=== PATIENT | male | born 1955 | race African-American/Black ===

== ENCOUNTER 2022-03-04 12:07 | Inpatient (IN) | payer OTHER ==
[2022-03-04 14:11] VITALS: BMI 20.9
[2022-03-04] MEDS ORDERED: NALOXONE HCL (KLOXXADO) 8 MG SPRAY NS PRN (14:53)
[2022-03-04] MEDS ORDERED: DICYCLOMINE HCL 10 MG CAPSULE PO PRN (14:53)
[2022-03-04] MEDS ORDERED: NICOTINE 10 MG CARTRIDGE (INHALER) IH PRN (14:53)
[2022-03-04] MEDS ORDERED: ACETAMINOPHEN 325 MG TABLET (FP) PO PRN ×2 (14:53)
[2022-03-04] MEDS ORDERED: BISMUTH SUBSALICYLATE 524 MG/30 ML PO PRN (14:53)
[2022-03-04] MEDS ORDERED: MAGNESIUM CITRATE 300 ML BOTTLE PO PRN (14:53)
[2022-03-04] MEDS ORDERED: IBUPROFEN 400 MG TABLET (FP) PO PRN (14:53)
[2022-03-04] MEDS ORDERED: ONDANSETRON *ODT* 4 MG TABLET SL PRN (14:53)
[2022-03-04] MEDS ORDERED: MAG HYDROX/AL HYDROX/SIMETH 30 ML UNIT-DOSE CUP PO PRN (14:53)
[2022-03-04] MEDS ORDERED: METHOCARBAMOL 500 MG TABLET PO PRN (14:53)
[2022-03-04] MEDS ORDERED: MAGNESIUM HYDROX 2400MG/30ML ORAL SUSPENSION 30 ML CUP PO PRN (14:53)
[2022-03-04] MEDS ORDERED: LOPERAMIDE HCL 2 MG CAPSULE PO PRN (14:53)
[2022-03-04] MEDS ORDERED: IBUPROFEN 600 MG TABLET (FP) PO PRN (14:53)
[2022-03-04] MEDS ORDERED: LORATADINE 10 MG TABLET PO SCH (16:00)
[2022-03-04] MEDS: hydrOXYzine PAMOATE 25 MG CAPSULE (FP) PO SCH ×2 (18:01→22:26)
[2022-03-04] MEDS: PRENATAL VITAMINS W/ FOLIC ACID TABLET (FP) PO SCH (18:12)
[2022-03-04] MEDS: MELATONIN 5 MG TABLETS PO SCH (22:26)
[2022-03-04] MEDS: THIAMINE HCL 100 MG TABLET (FP) PO SCH (22:27)
[2022-03-05] MEDS: hydrOXYzine PAMOATE 25 MG CAPSULE (FP) PO SCH ×5 (07:04→22:28)
[2022-03-05] MEDS ORDERED: chlordiazePOXIDE HCL 25 MG CAPSULE PO PRN (10:40)
[2022-03-05] MEDS: APIXABAN 5 MG TABLET PO SCH (10:46)
[2022-03-05] MEDS: amLODIPine BESYLATE 5 MG TABLET (FP) PO SCH (10:47)
[2022-03-05] MEDS: PRENATAL VITAMINS W/ FOLIC ACID TABLET (FP) PO SCH (10:47)
[2022-03-05 12:12] LABS: HEMATOCRIT 35.5 % (35.4-49); HEMOGLOBIN 12.1 GM/dL (11.7-16.9); MCH 27.8 pg (25.7-33.7); MCHC 33.9 g/dl (32.0-35.9); MEAN PLT VOLUME 7.8 fl (7.5-11.1); PLATELET COUNT 193 10^3/uL (134-434); RBC 4.33 M/mm3 (4.00-5.60); RDW 17.4 % (11.9-15.9)
[2022-03-05 12:27] LABS: CALCIUM 8.9 mg/dL (8.5-10.1)
[2022-03-05 12:28] LABS: ALBUMIN 2.8 g/dl (3.4-5.0); BLOOD UREA NITROGEN 17.8 mg/dL (7-18)
[2022-03-05 12:31] LABS: CREATININE 0.9 mg/dL (0.55-1.3)
[2022-03-05 12:32] LABS: BILIRUBIN,TOTAL 0.3 mg/dL (0.2-1); TOT PROT 6.7 g/dl (6.4-8.2)
[2022-03-05] MEDS: EMTRICITAB/RILPIVIRINE/TENOFOV 1 EACH TABLET PO SCH (13:03)
[2022-03-05] MEDS: chlordiazePOXIDE HCL 25 MG CAPSULE PO SCH ×3 (13:03→22:29)
[2022-03-05] MEDS: BENZOCAINE/MENTHOL (CHLORASEPTIC ) LOZENGE MM PRN (18:22)
[2022-03-05] MEDS: THIAMINE HCL 100 MG TABLET (FP) PO SCH (22:28)
[2022-03-05] MEDS: QUEtiapine FUMARATE 200 MG TABLET PO SCH (22:28)
[2022-03-05] MEDS: MELATONIN 5 MG TABLETS PO SCH (22:28)
[2022-03-06] MEDS: chlordiazePOXIDE HCL 25 MG CAPSULE PO SCH ×4 (06:02→22:12)
[2022-03-06] MEDS: hydrOXYzine PAMOATE 25 MG CAPSULE (FP) PO SCH ×5 (06:03→22:10)
[2022-03-06] MEDS: EMTRICITAB/RILPIVIRINE/TENOFOV 1 EACH TABLET PO SCH (07:16)
[2022-03-06] MEDS: APIXABAN 5 MG TABLET PO SCH (10:19)
[2022-03-06] MEDS: PRENATAL VITAMINS W/ FOLIC ACID TABLET (FP) PO SCH (10:19)
[2022-03-06] MEDS: amLODIPine BESYLATE 5 MG TABLET (FP) PO SCH (10:19)
[2022-03-06] MEDS: BENZOCAINE/MENTHOL (CHLORASEPTIC ) LOZENGE MM PRN (10:52)
[2022-03-06] MEDS: QUEtiapine FUMARATE 200 MG TABLET PO SCH (22:10)
[2022-03-06] MEDS: MELATONIN 5 MG TABLETS PO SCH (22:10)
[2022-03-06] MEDS: THIAMINE HCL 100 MG TABLET (FP) PO SCH (22:10)
[2022-03-07] MEDS: chlordiazePOXIDE HCL 25 MG CAPSULE PO SCH ×4 (05:18→22:21)
[2022-03-07] MEDS: hydrOXYzine PAMOATE 25 MG CAPSULE (FP) PO SCH ×5 (05:18→22:21)
[2022-03-07] MEDS: APIXABAN 5 MG TABLET PO SCH (10:46)
[2022-03-07] MEDS: PRENATAL VITAMINS W/ FOLIC ACID TABLET (FP) PO SCH (10:46)
[2022-03-07] MEDS: EMTRICITAB/RILPIVIRINE/TENOFOV 1 EACH TABLET PO SCH (10:46)
[2022-03-07] MEDS: amLODIPine BESYLATE 5 MG TABLET (FP) PO SCH (10:48)
[2022-03-07] MEDS: guaiFENesin 200 MG/10 ML 10 ML UNIT-DOSE CUPS PO PRN ×2 (13:03→22:23)
[2022-03-07] MEDS: QUEtiapine FUMARATE 200 MG TABLET PO SCH (22:21)
[2022-03-07] MEDS: THIAMINE HCL 100 MG TABLET (FP) PO SCH (22:21)
[2022-03-07] MEDS: MELATONIN 5 MG TABLETS PO SCH (22:21)
[2022-03-07] MEDS: BENZOCAINE/MENTHOL (CHLORASEPTIC ) LOZENGE MM PRN (22:24)
[2022-03-08] MEDS ORDERED: chlordiazePOXIDE HCL 10 MG CAPSULE PO PRN
[2022-03-08] MEDS: chlordiazePOXIDE HCL 10 MG CAPSULE PO SCH ×4 (05:17→22:10)
[2022-03-08] MEDS: hydrOXYzine PAMOATE 25 MG CAPSULE (FP) PO SCH ×5 (05:17→22:10)
[2022-03-08] MEDS: guaiFENesin 200 MG/10 ML 10 ML UNIT-DOSE CUPS PO PRN ×2 (05:18→22:13)
[2022-03-08] MEDS: EMTRICITAB/RILPIVIRINE/TENOFOV 1 EACH TABLET PO SCH (07:26)
[2022-03-08] MEDS: PRENATAL VITAMINS W/ FOLIC ACID TABLET (FP) PO SCH (10:23)
[2022-03-08] MEDS: amLODIPine BESYLATE 5 MG TABLET (FP) PO SCH (10:23)
[2022-03-08] MEDS: APIXABAN 5 MG TABLET PO SCH (10:23)
[2022-03-08] MEDS: QUEtiapine FUMARATE 200 MG TABLET PO SCH (22:10)
[2022-03-08] MEDS: MELATONIN 5 MG TABLETS PO SCH (22:10)
[2022-03-08] MEDS: THIAMINE HCL 100 MG TABLET (FP) PO SCH (22:11)
[2022-03-08] MEDS: BENZOCAINE/MENTHOL (CHLORASEPTIC ) LOZENGE MM PRN (22:13)
[2022-03-09] MEDS: hydrOXYzine PAMOATE 25 MG CAPSULE (FP) PO SCH ×5 (05:18→21:59)
[2022-03-09] MEDS: guaiFENesin 200 MG/10 ML 10 ML UNIT-DOSE CUPS PO PRN (05:19)
[2022-03-09] MEDS: chlordiazePOXIDE HCL 10 MG CAPSULE PO SCH ×2 (07:10→17:37)
[2022-03-09] MEDS: EMTRICITAB/RILPIVIRINE/TENOFOV 1 EACH TABLET PO SCH (07:11)
[2022-03-09] MEDS: PRENATAL VITAMINS W/ FOLIC ACID TABLET (FP) PO SCH (10:08)
[2022-03-09] MEDS: APIXABAN 5 MG TABLET PO SCH (10:08)
[2022-03-09] MEDS: amLODIPine BESYLATE 5 MG TABLET (FP) PO SCH (10:08)
[2022-03-09] MEDS: MELATONIN 5 MG TABLETS PO SCH (21:59)
[2022-03-09] MEDS: QUEtiapine FUMARATE 200 MG TABLET PO SCH (21:59)
[2022-03-09] MEDS: THIAMINE HCL 100 MG TABLET (FP) PO SCH (21:59)
[2022-03-09] MEDS: BENZOCAINE/MENTHOL (CHLORASEPTIC ) LOZENGE MM PRN (22:02)
[2022-03-10] MEDS ORDERED: chlordiazePOXIDE HCL 10 MG CAPSULE PO ONE (05:00)
[2022-03-10] MEDS: hydrOXYzine PAMOATE 25 MG CAPSULE (FP) PO SCH ×2 (05:29→10:16)
[2022-03-10 06:43] VITALS: RESP 16
[2022-03-10] MEDS: EMTRICITAB/RILPIVIRINE/TENOFOV 1 EACH TABLET PO SCH (07:02)
[2022-03-10 09:35] VITALS: BP 141/85; PULSE 97; TEMP 97.7
[2022-03-10] MEDS: PRENATAL VITAMINS W/ FOLIC ACID TABLET (FP) PO SCH (10:13)
[2022-03-10] MEDS: APIXABAN 5 MG TABLET PO SCH (10:13)
[2022-03-10] MEDS: amLODIPine BESYLATE 5 MG TABLET (FP) PO SCH (10:13)
[2022-03-10] MEDS: guaiFENesin 200 MG/10 ML 10 ML UNIT-DOSE CUPS PO PRN (10:15)
[2022-03-10] MEDS: BENZOCAINE/MENTHOL (CHLORASEPTIC ) LOZENGE MM PRN (10:15)
== END 2022-03-10 10:40 | disposition home or self-care (01) | DRG 897 ==
LOC: YASAS 12:07 → Y3N 15:20 → UNDOADMIN 15:20 → Y3N 16:05
PROVIDERS: ADMIT Allergy & Immunology; ATTEND Surgery
PROC: HZ2ZZZZ Detoxification Services for Substance Abuse Treatment (ICD-10-PCS; principal; 2022-03-04)
DX: F10.230 Alcohol dependence with withdrawal, uncomplicated (principal); F14.20 Cocaine dependence, uncomplicated; F12.20 Cannabis dependence, uncomplicated; F17.210 Nicotine dependence, cigarettes, uncomplicated; F19.24 Other psychoactive substance dependence with psychoactive substance-induced mood disorder; F31.9 Bipolar disorder, unspecified; Z21 Asymptomatic human immunodeficiency virus [HIV] infection status; G47.00 Insomnia, unspecified; I10 Essential (primary) hypertension; R05.9 Cough, unspecified; Z86.79 Personal history of other diseases of the circulatory system; Z87.438 Personal history of other diseases of male genital organs
CPT/HCPCS: 36415; 80053; 85027; 86780; 93005; 93010; C9803-CS; U0003; U0005

== ENCOUNTER 2024-10-20 08:50 | Inpatient (IN) | payer OTHER ==
[2024-10-20 09:17] VITALS: BMI 20.3
[2024-10-20] MEDS ORDERED: DICYCLOMINE HCL 10 MG CAPSULE PO PRN (09:30)
[2024-10-20] MEDS ORDERED: LOPERAMIDE HCL 2 MG CAPSULE PO PRN (09:30)
[2024-10-20] MEDS ORDERED: IBUPROFEN 400 MG TABLET (FP) PO PRN (09:30)
[2024-10-20] MEDS ORDERED: MAG HYDROX/AL HYDROX/SIMETH 30 ML UNIT-DOSE CUP PO PRN (09:30)
[2024-10-20] MEDS ORDERED: IBUPROFEN 600 MG TABLET (FP) PO PRN (09:30)
[2024-10-20] MEDS ORDERED: NALOXONE (NARCAN) HCL 4 MG/0.1 ML SPRAY NS PRN (09:30)
[2024-10-20] MEDS ORDERED: BISMUTH SUBSALICYLATE 524 MG/30 ML PO PRN (09:30)
[2024-10-20] MEDS ORDERED: BENZONATATE 200 MG CAPSULE PO PRN (09:30)
[2024-10-20] MEDS ORDERED: MAGNESIUM HYDROX 2400MG/30ML ORAL SUSPENSION 30 ML CUP PO PRN (09:30)
[2024-10-20] MEDS ORDERED: POLYETHYLENE GLYCOL (HEALTHYLAX) 3350 17 GM PACKET PO PRN (09:30)
[2024-10-20] MEDS ORDERED: guaiFENesin 600 MG TABLET.ER (FP) PO PRN (09:30)
[2024-10-20] MEDS ORDERED: ONDANSETRON *ODT* 4 MG TABLET SL PRN (09:30)
[2024-10-20] MEDS ORDERED: PERMETHRIN 5% TOPICAL CREAM 60 GM TUBE ONE (09:57)
[2024-10-20] MEDS: PERMETHRIN (NIX CREAM SCALP RINSE) 59 ML 1% BOTTLE TP ONE (09:59)
[2024-10-20] MEDS: PERMETHRIN 5% TOPICAL CREAM 60 GM TUBE TP ONE (09:59)
[2024-10-20] MEDS ORDERED: EMTRICITAB PO SCH (10:00)
[2024-10-20] MEDS ORDERED: TENOFOV PO SCH (10:00)
[2024-10-20] MEDS ORDERED: RILPIVIRINE PO SCH (10:00)
[2024-10-20] MEDS ORDERED: amLODIPine BESYLATE 5 MG TABLET (FP) ONE (10:58)
[2024-10-20] MEDS ORDERED: PRENATAL VITAMINS W/ FOLIC ACID TABLET (FP) PO ONE (10:58)
[2024-10-20] MEDS: amLODIPine BESYLATE 5 MG TABLET (FP) PO SCH (10:59)
[2024-10-20] MEDS: PRENATAL VITAMINS W/ FOLIC ACID TABLET (FP) PO SCH (10:59)
[2024-10-20] MEDS ORDERED: diazePAM 5 MG TABLET ONE (11:01)
[2024-10-20] MEDS: diazePAM 5 MG TABLET PO SCH (11:01)
[2024-10-20] MEDS: METHOCARBAMOL 500 MG TABLET PO PRN (11:57)
[2024-10-20] MEDS: LORATADINE 10 MG TABLET PO SCH (11:57)
[2024-10-20] MEDS: hydrOXYzine PAMOATE 25 MG CAPSULE (FP) PO PRN (11:57)
[2024-10-20] MEDS: FLUCONAZOLE 100 MG TABLET (UD) PO SCH (12:08)
[2024-10-20] MEDS: ARTIFICIAL TEARS OPHTHALMIC DROPS OU SCH (14:38)
[2024-10-20] MEDS: amLODIPine BESYLATE 5 MG TABLET (FP) PO ONE (17:13)
[2024-10-20] MEDS: THIAMINE 100 MG TABLET PO SCH (22:51)
[2024-10-20] MEDS: APIXABAN 5 MG TABLET PO SCH (22:51)
[2024-10-20] MEDS: BUDESONIDE/FORMETEROL FUMARATE 160/4.5 mcg INHALER IH SCH (22:51)
[2024-10-20] MEDS: MELATONIN 5 MG TABLETS PO SCH (22:51)
[2024-10-21] MEDS: ABACAVIR/DOLUTEGRAVIR/LAMIVUDI (TRIUMEQ) TABLET PO SCH (07:10)
[2024-10-21] MEDS: HYDROCHLOROTHIAZIDE 25 MG TABLET (FP) PO SCH (09:51)
[2024-10-21] MEDS: FLUTICASONE PROP 0.05% 16 GM NASAL SPRAY NS SCH (09:52)
[2024-10-21 12:11] LABS: POTASSIUM 4.9 mmol/L (3.5-5.1)
[2024-10-21 12:14] LABS: HEMATOCRIT 40.9 % (40.1-51.0); HEMOGLOBIN 12.8 g/dL (13.7-17.5); MCHC 31.3 g/dl (32.3-36.5); MEAN CELL VOLUME 80.7 fl (79.0-92.2); MEAN PLT VOLUME 12.2 fl (9.4-12.4); PLATELET COUNT 186 x10^3/uL (163-337); RDW 14.6 % (12.2-16.4)
[2024-10-21 12:18] LABS: CALCIUM 9.9 mg/dL (8.5-10.1)
[2024-10-21 12:24] LABS: BILIRUBIN,TOTAL 0.7 mg/dL (0.2-1); TOT PROT 8.6 g/dl (6.4-8.2)
[2024-10-21] MEDS ORDERED: QUEtiapine FUMARATE 25 MG TABLET PO SCH (22:00)
[2024-10-21] MEDS: QUEtiapine FUMARATE 100 MG TABLET (FP) PO SCH (22:22)
[2024-10-22] MEDS: diazePAM 5 MG TABLET PO SCH (05:47)
[2024-10-22] MEDS: amLODIPine BESYLATE 5 MG TABLET (FP) PO ONE (14:04)
[2024-10-22] MEDS: diazePAM 5 MG TABLET PO PRN (17:37)
[2024-10-22] MEDS: ACETAMINOPHEN 325 MG TABLET (FP) PO PRN (17:38)
[2024-10-22] MEDS: CLOTRIMAZOLE 1% CREAM TP SCH (22:06)
[2024-10-23] MEDS: diazePAM 5 MG TABLET PO SCH (05:46)
[2024-10-23] MEDS: amLODIPine BESYLATE 10 MG TABLET (FP) PO SCH (09:05)
[2024-10-23] MEDS: valACYclovir HCL 500 MG TABLET (FP) PO SCH (09:57)
[2024-10-23] MEDS: LOSARTAN POTASSIUM 25 MG TABLET PO ONE (12:41)
[2024-10-23 12:59] VITALS: RESP 16
[2024-10-23] MEDS: BENZOCAINE/MENTHOL (CHLORASEPTIC ) LOZENGE MM PRN (17:12)
[2024-10-24] MEDS: diazePAM 5 MG TABLET PO ONE (06:21)
[2024-10-24 09:21] VITALS: BP 145/94; PULSE 100; TEMP 97.5
== END 2024-10-24 10:35 | disposition home or self-care (01) | DRG 897 ==
LOC: YASAS 08:50 → Y3N 11:08
PROVIDERS: ADMIT Allergy & Immunology; ATTEND Allergy & Immunology
PROC: HZ2ZZZZ Detoxification Services for Substance Abuse Treatment (ICD-10-PCS; principal; 2024-10-20)
DX: F11.23 Opioid dependence with withdrawal (principal); F14.20 Cocaine dependence, uncomplicated; B20 Human immunodeficiency virus [HIV] disease; F10.230 Alcohol dependence with withdrawal, uncomplicated; F12.20 Cannabis dependence, uncomplicated; F17.210 Nicotine dependence, cigarettes, uncomplicated; F31.9 Bipolar disorder, unspecified; G40.909 Epilepsy, unspecified, not intractable, without status epilepticus; I25.10 Atherosclerotic heart disease of native coronary artery without angina pectoris; I10 Essential (primary) hypertension; B00.9 Herpesviral infection, unspecified; B85.2 Pediculosis, unspecified; Z86.711 Personal history of pulmonary embolism; Z79.01 Long term (current) use of anticoagulants; Z79.899 Other long term (current) drug therapy; Z62.810 Personal history of physical and sexual abuse in childhood
CPT/HCPCS: 36415; 80053; 80305; 80307; 85027; 86780